=== PATIENT | male | born 1965 | race Caucasian/White ===

== ENCOUNTER 2022-01-28 07:20 | Outpatient (CLI) | payer OTHER ==
[~2022-01-28] VITALS: Ht 180.3 cm; Wt 104.1 kg
[2022-01-28 08:07] VITALS: BP 142/97; PULSE 59; TEMP 98.1
[2022-01-28 08:14] LABS: HEMATOCRIT 42.7 % (42.0-52.0); HEMOGLOBIN 15.2 g/dl (13.5-18.0); MEAN CELL VOLUME 81 fl (80.0-100.0); MEAN CORPUSCULAR HEMOGLOBIN 29 pg (27-31); MEAN CORPUSCULAR HGB CONC 36 g/dl (33.0-37.0); MEAN PLATELET VOLUME 10.7 fl (7.4-10.4); PLATELET COUNT 166 K/mm3 (130-400); RED BLOOD COUNT 5.27 M/mm3 (4.20-5.60); REDCELL DISTRIBUTION WIDTH-CV 13.5 % (11.5-14.5)
[2022-01-28 08:15] LABS: INR 1.2 (0.8-3.0); PROTHROMBIN TIME 13.1 SECONDS (9.7-12.8)
[2022-01-28 08:23] LABS: CALCIUM 9.1 mg/dL (8.4-10.2); CREATININE, serum 1.09 mg/dL (0.72-1.25)
[2022-01-28 08:28] VITALS: BP 142/97; PULSE 59; TEMP 98.1
[2022-01-28] MEDS ORDERED: ALAVERT10 M1 PO (08:31)
[2022-01-28] MEDS ORDERED: CARTIA XT180 MG PO (08:32)
[2022-01-28] MEDS ORDERED: ZYBAN150 M1 (08:33)
[2022-01-28] MEDS ORDERED: CRESTOR 10MG10 MG PO (08:36)
[2022-01-28 09:45] VITALS: BP 126/82; PULSE 69
[2022-01-28 10:00] VITALS: BP 130/86; PULSE 65
[2022-01-28 10:15] VITALS: BP 127/89; PULSE 61
[2022-01-28 10:30] VITALS: BP 138/97; PULSE 62
--- NOTE | 2022-01-28 10:47 | NUR ---
Discharge instructions reviewed with pt and at bedside, verbalized understanding and was comfortable discharging home; pt tolerated PO fluid intake without difficulty; PIV discontinued; pt ambulated out to 's car at 1047.
== END 2022-01-28 10:47 ==
LOC: COL.RAD 07:20
PROVIDERS: Internal Medicine Cardiovascular Disease
DX: I34.0 Nonrheumatic mitral (valve) insufficiency (principal); I51.7 Cardiomegaly
CPT/HCPCS: J2704